=== PATIENT | male | born 1945 | race Asian ===

== ENCOUNTER 2018-08-27 20:59 | Emergency (ER) | payer BC, MEDICARE ==
--- NOTE | 2018-08-27 21:25 | ED Physician Documentation ---
PD HPI HEAD INJURY - Stated complaint Stated Complaint: GLF/FACE INJURY - Chief complaint Chief Complaint: Trauma Hd/Nk - History obtained from History obtained from: Patient - History of Present Illness Mechanism of head injury: Fell, Blow. No: Penetrating wound Where head injury occurred: Home Timing - onset: Today Quality of pain: Pain - Additional information Additional information: 72-year-old male tripped and fell on his deck striking his face and back of his head. The patient denies any loss of consciousness. The patient denies injury to his chest, abdomen, pelvis or extremities. The patient has been drinking this evening. Symptoms are described as moderate. No other associated symptoms. Review of Systems Constitutional: denies: Fever, Fatigue Eyes: denies: Photophobia Ears: denies: Ear pain Nose: denies: Congestion Throat: denies: Sore throat Cardiac: denies: Chest pain / pressure Respiratory: denies: Cough GI: denies: Abdominal Pain Skin: reports: Laceration (s) Neurologic: reports: Headache PD PAST MEDICAL HISTORY - Past Medical History Cardiovascular: Hypertension GI: Cirrhosis Musculoskeletal: Rheumatoid arthritis, Chronic back pain Derm: Psoriasis - Past Surgical History Past Surgical History: No General: Appendectomy, Bowel surgery - Present Medications Home Medications: Ambulatory Orders Medication Instructions Recorded Confirmed Furosemide 1 tab PO DAILY 08/27/18 08/27/18 Lactulose [Constulose] 45 ml PO TID 08/27/18 08/27/18 Pantoprazole [Protonix] 40 mg PO DAILY 08/27/18 08/27/18 Spironolactone 1 tab PO DAILY 08/27/18 08/27/18 rifAXIMin [Xifaxan] 550 mg PO DAILY 08/27/18 08/27/18 - Allergies Allergies/Adverse Reactions: Allergies Allergy/AdvReac Type Severity Reaction Status Date / Time capsaicin [From Zostrix] Allergy Hives Verified 08/27/18 21:10 - Social History Does the pt smoke?: No Smoking Status: Never smoker Does the pt drink ETOH?: No Does the pt have substance abuse?: No - Immunizations Immunizations are current?: Yes PD ED PE NORMAL - General General: Alert and oriented X 3, No acute distress - Neck Neck: Other (The patient is intoxicated and the Nexus criteria cannot be used so a CT scan was ordered to rule out a cervical spine injury) - Cardiac Cardiac: RRR, Strong equal pulses - Respiratory Respiratory: No respiratory distress - Abdomen Abdomen: Soft, Non tender - Back Back: No CVA TTP, No spinal TTP - Extremities Extremities: No deformity, No tenderness to palpate, Normal ROM s pain - Neuro Neuro: Alert and oriented X 3, No motor deficit, Normal speech PD ED PE EXPANDED - HEENT HEENT: Head injury, PERRL, Pupils unequal, EOMI HEENT Visual: 1 - bruising, deformity, tenderness 2 - bruising, tenderness Results - Vitals Vitals: Vital Signs - 24 hr 08/27/18 21:06 Heart Rate 97 Respiratory 18 Rate Blood Pressure 126/68 O2 Saturation 93 Oxygen O2 Source Room air - Rads (name of study) CT head/Face/neck Radiology: Final report received, See rad report (No acute or focal intracranial abnormality. No facial bone fracture identified. No fracture identified. Degenerative changes in the cervical spine. ) PD MEDICAL DECISION MAKING - ED course ED course: The patient's CT imaging does not show evidence of an Acute intracranial hemorrhage, skull fracture, facial bone fracture or cervical spine fracture. The patient's wounds are all abrasions and there is no area that would require laceration repair. Presently the patient appears appropriate for discharge and ongoing outpatient management. I discussed warning signs and recommended returning for any worsening or any concerns. Departure - Departure Disposition: 01 Home, Self Care Clinical Impression: Closed head injury Qualifiers: Encounter type: initial encounter Qualified Code(s): S09.90XA - Unspecified injury of head, initial encounter Facial contusion Qualifiers: Encounter type: initial encounter Qualified Code(s): S00.83XA - Contusion of other part of head, initial encounter Facial abrasion Qualifiers: Encounter type: initial encounter Qualified Code(s): S00.81XA - Abrasion of other part of head, initial encounter Fall Qualifiers: Encounter type: initial encounter Qualified Code(s): W19.XXXA - Unspecified fall, initial encounter Condition: Good Instructions: ED Head Injury Closed, Wound Care, ED Abrasion, ED Contusion Scalp, ED Contusion Face Follow-Up: SUNDEEP PELAYO MD [Primary Care Provider] - Within 1 week Comments: Please return to the emergency department for worsening symptoms or any concerns
--- NOTE | 2018-08-27 22:32 | CT Report ---
Reason: fall, head/face injury, +ETOH Procedure Date: 08/27/2018 Accession Number: [id number] / [id number] Procedure: CT - Head W/O CPT Code: FULL RESULT: EXAM: CT HEAD EXAM DATE: 08/27/2018 09:59 PM. CLINICAL HISTORY: Fall, head/face injury, +ETOH. COMPARISON: None. TECHNIQUE: Multiaxial CT images were obtained from the foramen magnum to the vertex. Reformats: Sagittal and coronal. IV contrast: None. In accordance with CT protocol optimization, one or more of the following dose reduction techniques were utilized for this exam: automated exposure control, adjustment of mA and/or KV based on patient size, or use of iterative reconstructive technique. FINDINGS: Parenchyma: No intraparenchymal hemorrhage. No evidence of mass, midline shift, or CT findings of infarction. Mai-white differentiation is distinct. Extraaxial Spaces: Normal for age. No subdural or epidural collections identified. Ventricles: Normal in size and position. Sinuses and Orbits: Imaged paranasal sinuses, orbits, and mastoids show no significant abnormality. Bones: No evidence of fracture or calvarial defect. Other: None. IMPRESSION: No acute or focal intracranial abnormality. RADIA
--- NOTE | 2018-08-27 22:37 | CT Report ---
Reason: fall, head/face injury, +ETOH Procedure Date: 08/27/2018 Accession Number: [id number] / [id number] Procedure: CT - Cervical Spine W/O CPT Code: FULL RESULT: EXAM: CT CERVICAL SPINE WITHOUT CONTRAST DATE: 08/27/2018 10:06 PM. HISTORY: Fall, head/face injury, +ETOH. COMPARISONS: None. TECHNIQUE: Thin-section axial images were acquired of the cervical spine without contrast. Post-processing: Coronal and sagittal reformats. Other: None. In accordance with CT protocol optimization, one or more of the following dose reduction techniques were utilized for this exam: automated exposure control, adjustment of mA and/or KV based on patient size, or use of iterative reconstructive technique. FINDINGS: Alignment: Grade 1 anterolisthesis at C7-T1, likely chronic. Bones: No fracture or bone lesion. Interspace Levels/Facets: C1-C2: Unremarkable. C2-C3: Unremarkable. C3-C4: Unremarkable. C4-C5: Unremarkable. C5-C6: Severe disk space narrowing. Plate osteophyte minimally narrows the central canal. Severe bilateral foraminal stenosis. C6-C7: Severe disk space narrowing. Endplate osteophyte mildly narrows the central canal. Severe left-sided foraminal stenosis. Right foramen mildly narrowed. C7-T1: Moderate disk space narrowing. Mild bilateral facet arthropathy. Musculature: Normal. No fatty atrophy. Other: Calcification of both carotid bifurcations. The lung apices are not imaged. IMPRESSION: 1. Degenerative changes in the cervical spine. 2. No fracture identified. RADIA
--- NOTE | 2018-08-27 22:41 | CT Report ---
Reason: facial injury Procedure Date: 08/27/2018 Accession Number: [id number] / [id number] Procedure: CT - Facial Bones W/O CPT Code: FULL RESULT: EXAM: CT MAXILLOFACIAL WITHOUT CONTRAST EXAM DATE: 08/27/2018 10:12 PM. CLINICAL HISTORY: Fall with facial injury COMPARISONS: None. TECHNIQUE: Thin-section axial images were acquired of the face without contrast. Post-processing: Coronal and sagittal reformats. Other: None. In accordance with CT protocol optimization, one or more of the following dose reduction techniques were utilized for this exam: automated exposure control, adjustment of mA and/or KV based on patient size, or use of iterative reconstructive technique. FINDINGS: Soft Tissue: The infratemporal fossa and parapharyngeal spaces are unremarkable. Soft tissue swelling over the left forehead. Orbits: Bilateral lens replacement surgery, otherwise unremarkable. Bones: No fracture or bone lesion. Temporomandibular Joints: The temporomandibular joints are symmetric and normally located. Sinuses: No significant abnormality. Other: None. IMPRESSION: No facial bone fracture identified. RADIA
[2018-08-27 22:58] VITALS: BP 106/88
== END 2018-08-27 23:01 | disposition home or self-care (01) ==
LOC: ED 20:59
DX: S00.83XA Contusion of other part of head, initial encounter (principal); S00.81XA Abrasion of other part of head, initial encounter; S09.90XA Unspecified injury of head, initial encounter; W01.10XA Fall on same level from slipping, tripping and stumbling with subsequent striking against unspecified object, initial encounter; Y92.008 Other place in unspecified non-institutional (private) residence as the place of occurrence of the external cause; F10.929 Alcohol use, unspecified with intoxication, unspecified; I10 Essential (primary) hypertension
CPT/HCPCS: 70450; 70486; 72125; 99283

== ENCOUNTER 2018-08-28 07:48 | Emergency (ER) | payer MEDICARE ==
--- NOTE | 2018-08-28 07:54 | ED Physician Documentation ---
PD HPI HEENT - Stated complaint Stated Complaint: NOSE BLEED - History obtained from History obtained from: Patient - History of Present Illness Timing - onset: Today Timing - duration: Hours Timing - details: Abrupt onset, Still present Location: Nose (right nostril started bleeding when blew/wiped it during the night. Has had this in the past. 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 He had some nosebleed yesterday that improved on its own.) Review of Systems Constitutional: denies: Fever Nose: reports: Epistaxis (right side). denies: Rhinorrhea / runny nose, Congestion Throat: denies: Sore throat Cardiac: denies: Chest pain / pressure Respiratory: denies: Dyspnea, Cough Endocrine: reports: Weight loss, Easy bruising / bleeding PD PAST MEDICAL HISTORY - Past Medical History Cardiovascular: Hypertension Respiratory: None Neuro: None GI: Cirrhosis Musculoskeletal: Rheumatoid arthritis, Chronic back pain Derm: Psoriasis - Past Surgical History Past Surgical History: No General: Appendectomy, Bowel surgery - Present Medications Home Medications: Ambulatory Orders Medication Instructions Recorded Confirmed Furosemide 1 tab PO DAILY 08/27/18 08/28/18 Lactulose [Constulose] 45 ml PO TID 08/27/18 08/28/18 Pantoprazole [Protonix] 40 mg PO DAILY 08/27/18 08/28/18 Spironolactone 1 tab PO DAILY 08/27/18 08/28/18 rifAXIMin [Xifaxan] 550 mg PO DAILY 08/27/18 08/28/18 - Allergies Allergies/Adverse Reactions: Allergies Allergy/AdvReac Type Severity Reaction Status Date / Time capsaicin [From Zostrix] Allergy Hives Verified 08/28/18 07:55 - Social History Does the pt smoke?: No Smoking Status: Never smoker Does the pt drink ETOH?: No Does the pt have substance abuse?: No - Immunizations Immunizations are current?: Yes PD ED PE NORMAL - Vitals Vital signs reviewed: Yes - General General: Alert and oriented X 3, Well developed/nourished, Other (somewhat anxious. ) - HEENT HEENT: Other (bruising left periorbital and nose. There is dripping epistaxis from right side despite direct pressure. It is coming from anterior medial wall though. ) - Neck Neck: Supple, no meningeal sign, No adenopathy - Cardiac Cardiac: RRR, No murmur - Respiratory Respiratory: Clear bilaterally - Derm Derm: Normal color, Warm and dry - Neuro Neuro: Alert and oriented X 3, No motor deficit, Normal speech Eye Opening: Spontaneous Motor: Obeys Commands Verbal: Oriented GCS Score: 15 Results - Vitals Vitals: Vital Signs - 24 hr 08/28/18 08/28/18 07:53 09:18 Temperature 36.8 C 37.4 C Heart Rate 106 H 93 Respiratory 20 16 Rate Blood Pressure 142/76 H 126/69 O2 Saturation 94 92 Oxygen O2 Source Room air - Labs Labs: Laboratory Tests 08/28/18 08/28/18 08:30 08:30 WBC 4.1 L RBC 3.29 L Hgb 11.8 L Hct 33.6 L MCV 102.3 H MCH 35.9 H MCHC 35.1 RDW 14.9 Plt Count 99 L MPV 7.6 Neut # (Auto) 2.7 Lymph # (Auto) 0.4 L Clare # (Auto) 0.8 Eos # (Auto) 0.1 Baso # (Auto) 0.0 Absolute Nucleated RBC 0.00 Nucleated RBC % 0.1 Sodium 133 L Potassium 3.2 L Chloride 94 L Carbon Dioxide 23 Anion Gap 16.0 H BUN 18 Creatinine 0.9 Estimated GFR (MDRD) 83 L Glucose 113 H Calcium 9.1 Total Bilirubin 2.2 H AST 110 H ALT 40 Alkaline Phosphatase 139 H Total Protein 7.7 Albumin 3.2 Globulin 4.5 H Albumin/Globulin Ratio 0.7 L Lipase 35 Procedures - Epistaxis Site: Right, Anterior Preparation: Clots removed, Afrin, Lidocaine, Clamp / pressure applied, Other (TXA) Treatment: Silver Nitrate, Packing inserted Other: Observed - no bleeding, Pt tolerated well, O2 sat WNL PD MEDICAL DECISION MAKING - ED course Complexity details: reviewed results, considered differential, d/w patient Departure - Departure Disposition: 01 Home, Self Care Clinical Impression: Acute anterior epistaxis Condition: Stable Record reviewed to determine appropriate education?: Yes Instructions: ED Nasal Packing Anterior Removable Follow-Up: SUNDEEP PELAYO MD [Primary Care Provider] - Comments: Leave the packing in the right nostril for a day. Periodically re-saturated with a couple of squirts with the Afrin. Alternatively you could use saline spray to. The idea is to keep it moisturized and into position against the bleeding spot. There may be little traces of blood at times. If you have increased bleeding again, then pinch it with the nose pincher for 15 or 20 minutes and see if it stops again. Return if persistent bleeding. Otherwise remove the packing gently tomorrow after moisturizing it. Discharge Date/Time: 08/28/18 09:22
[2018-08-28] MEDS ORDERED: OXYMETAZOLINE NASAL SPRAY NAS STA (08:00)
[2018-08-28] MEDS ORDERED: TRANEXAMIC ACID 1,000 MG/10 ML VIAL NAS STA (08:00)
[2018-08-28 08:34] LABS: BASOPHILS % (AUTO) 0.4 %; EOSINOPHILS # (AUTO) 0.1 10^3/uL (0.0-0.7); EOSINOPHILS % (AUTO) 3.3 %; HGB - HEMOGLOBIN 11.8 g/dL (14.0-18.0); LYMPHOCYTES # (AUTO) 0.4 10^3/uL (1.5-3.5); LYMPHOCYTES % (AUTO) 9.6 %; MEAN CORPUSCULAR HEMOGLOBIN 35.9 pg (27.0-31.0); MEAN CORPUSCULAR HGB CONC 35.1 g/dL (32.0-36.0); MEAN CORPUSCULAR VOLUME 102.3 fL (80.0-94.0); MEAN PLATELET VOLUME 7.6 fL (7.4-11.4); MONOCYTES # (AUTO) 0.8 10^3/uL (0.0-1.0); MONOCYTES % (AUTO) 20.4 %; NEUTROPHILS # (AUTO) 2.7 10^3/uL (1.5-6.6); NEUTROPHILS % (AUTO) 66.3 %; PLT - PLATELET COUNT 99 10^3/uL (130-450); RED BLOOD COUNT 3.29 10^6/uL (4.70-6.10); RED CELL DISTRIBUTION WIDTH 14.9 % (12.0-15.0); WHITE BLOOD COUNT 4.1 x10^3/uL (4.8-10.8)
[2018-08-28 08:48] LABS: ALBUMIN 3.2 g/dL (3.2-5.5); ALBUMIN/GLOBULIN RATIO 0.7 (1.0-2.2); BILIRUBIN,TOTAL 2.2 mg/dL (0.2-1.0); CALCIUM 9.1 mg/dL (8.5-10.3); CREATININE 0.9 mg/dL (0.6-1.2); TOTAL PROTEIN 7.7 g/dL (6.7-8.2)
[2018-08-28 09:19] VITALS: BP 126/69
== END 2018-08-28 09:22 | disposition home or self-care (01) ==
LOC: ED 07:48
DX: R04.0 Epistaxis (principal); I10 Essential (primary) hypertension
CPT/HCPCS: 30901; 36415; 80053; 83690; 85025; 99283; A9270